=== PATIENT | male | born 1980 | race Caucasian/White ===

== ENCOUNTER → 2022-05-21 | Outpatient (CLI) | payer BC, OTHER ==
--- NOTE | 2022-05-21 16:47 | Diagnostic Imaging Report ---
INDICATION: Lower extremity pain. EXAMINATION: Noninvasive study performed in the routine fashion. FINDINGS: Ankle-brachial index on the right side was 1.03 and on the left side the index was 1.08. Waveforms appeared symmetric. IMPRESSION: Unremarkable study. Dictated by: Dictated on workstation # [id number]
== END ==
LOC: RAD 14:49
PROVIDERS: ATTEND Nurse Practitioner Family
DX: M79.604 Pain in right leg (principal); M79.605 Pain in left leg
CPT/HCPCS: 93922